=== PATIENT | male | born 1955 | race American Indian/Alaskan Native ===

== ENCOUNTER 2017-03-13 17:22 | Inpatient (IN) | payer SELFPAY ==
[2017-03-13] MEDS ORDERED: Sodium Chloride 0.9% 2,000 ML IV STA (17:58)
--- NOTE | 2017-03-13 18:13 | ED PDOC ---
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 He additionally states that he has been having bloody stool for the past couple of weeks, and admits to alcohol use. Past Medical History Reviewed: Historical Data, Nursing Documentation, Vital Signs Vital Signs: Last Vital Signs Temp 98 F 03/13/17 17:24 Pulse 66 03/13/17 18:20 Resp 16 03/13/17 18:20 BP 155/77 H 03/13/17 18:20 Pulse Ox 89 L 03/13/17 18:22 - Medical History PMH: No Chronic Diseases - Family History Family History: States: Unknown Family Hx - Social History Alcohol: < 2 Drinks/Day - Home Medications Home Medications: Ambulatory Orders Medication Instructions Recorded No Known Home Med 03/13/17 - Allergies Allergies/Adverse Reactions: Allergies Allergy/AdvReac Type Severity Reaction Status Date / Time No Known Allergies Allergy Verified 03/13/17 17:24 Review of Systems Constitutional: Positive for: Other (near syncope, felt very hot) Cardiovascular: Negative for: Chest Pain Gastrointestinal: Positive for: Vomiting, Hematochezia. Negative for: Abdominal Pain Physical Exam - Reviewed Nursing Documentation Reviewed: Yes Vital Signs Reviewed: Yes - Physical Exam Appears: Positive for: Non-toxic, No Acute Distress Head Exam: Positive for: ATRAUMATIC, NORMOCEPHALIC Skin: Positive for: Normal Color, Warm Eye Exam: Positive for: Other (mild conjunctival pallor). Negative for: Normal appearance Gastrointestinal/Abdominal: Positive for: Normal Exam, Soft. Negative for: Tenderness Neurologic/Psych: Positive for: Alert, Oriented. Negative for: Motor/Sensory Deficits - Laboratory Results Result Diagrams: 03/13/17 18:20 03/13/17 18:20 - ECG O2 Sat by Pulse Oximetry: 89 (RA) Pulse Ox Interpretation: Normal - Progress ED Course And Treament: PULSE OX 98% RA ZOFRAN 4 MG IV X1 DOSE PEPCID 20 MG IV X 1 DOSE NS 1 LITER WIDE OPEN REGLAN 10 MG IV X 1 DOSE Medical Decision Making Medical Decision Making: Impression: Near Syncopal Episode Plan: * Type and Screen * CBC * CMP * PTT * PT * Alcohol Serum * Magnesium * EKG * Chest X-Ray * NaCl 2000 mLs at 1000 mLs/hr * Zofran Inj 4 mg IV * Protonix Inj 40 mg IV * Reevaluation EKG showed sinus bradycardia at 56 bpm, no ectopy, no acute changes. Scribe Attestation: Documented by Jacquelin Cárdenas, acting as a scribe for Debra Cuevas PA-C. Provider Scribe Attestation: All medical record entries made by the Scribe were at my direction and personally dictated by me. I have reviewed the chart and agree that the record accurately reflects my personal performance of the history, physical exam, medical decision making, and the department course for this patient. I have also personally directed, reviewed, and agree with the discharge instructions and disposition. Disposition - Clinical Impression Clinical Impression: Near syncope - Patient ED Disposition Is Patient to be Admitted: Transfer of Care - Disposition Disposition: Transfer of Care Disposition Time: 20:08 Condition: FAIR Forms: [employer] (Italian) Patient Signed Over To: Araceli Webb Handoff Comments: PENDING HEAD CT/RE-EVAL/ADMISSION
[2017-03-13 18:35] LABS: BASO # 0.1 K/uL (0.0-0.2); BASO % 0.5 % (0.0-2.0); EOS # 0.1 K/uL (0.0-0.7); HEMATOCRIT 41.6 % (35.0-51.0); LYMPH # 2.7 K/uL (1.0-4.3); LYMPH % 23.7 % (20.0-40.0); MEAN CELL VOLUME 81.7 fl (80.0-94.0); MEAN CORPUSCULAR HEMOGLOBIN 26.2 pg (27.0-31.0); MEAN PLATELET VOLUME 8.5 fl (7.2-11.7); MONO # 0.7 K/uL (0.0-0.8); MONO % 5.9 % (0.0-10.0); NEUT # 7.9 K/uL (1.8-7.0); NEUT % 68.9 % (50.0-75.0); RED CELL DISTRIBUTION WIDTH 15.7 % (11.5-14.5); WHITE BLOOD COUNT 11.5 K/uL (4.8-10.8)
[2017-03-13 18:45] LABS: PARTIAL THROMBOPLASTIN TIME 26.8 Seconds (25.6-37.1)
[2017-03-13 18:46] LABS: ALB/GLOB RATIO 1.1 (1.0-2.1); ALCOHOL SERUM < 10 mg/dl (0-10); ALKALINE PHOSPHATASE 94 U/L (38-126); ALT/SGPT 22 U/L (21-72); AST/SGOT 24 U/L (17-59); BILIRUBIN,TOTAL 0.9 mg/dl (0.2-1.3); BLOOD UREA NITROGEN 16 mg/dl (9-20); CALCIUM 9.9 mg/dL (8.4-10.2); CARBON DIOXIDE 23 mmol/L (22-30); CHLORIDE 107 mmol/L (98-107); GFR AFRICAN-AMERICAN > 60; GLUCOSE,RANDOM 137 mg/dL (75-110); MAGNESIUM 2.2 MG/DL (1.6-2.3); POTASSIUM 3.7 MMOL/L (3.6-5.0); SODIUM 143 mmol/l (132-148); TOTAL PROTEIN 8.8 G/DL (6.3-8.2)
--- NOTE | 2017-03-13 20:40 | ED PDOC ---
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 He additionally states that he has been having bloody stool for the past couple of weeks, and admits to alcohol use. 03/13/17 20:[address]: IMPRESSION: 1. Near complete opacification of bilateral maxillary and left frontal sinuses. Moderate mucosal thickening in the bilateral ethmoid sinuses. Clinical correlation for sinus disease. 2. No evidence of acute intracranial brain pathology. Labs resulted and reviewed with Pt who demonstrated full understanding. Pt reports still feeling intermittent episode of dizziness while in ED. Case discussed with ED MD, who agreed with admission at this time. Pt does not have PMD, hospitalist Dr Magallon, contacted and case discussed. Arrangements made for admission Disposition - Clinical Impression Clinical Impression: Near syncope - POA Present On Arrival: None - Disposition Disposition: Admitted as In-Patient Disposition Time: 22:37 Condition: FAIR Forms: [employer] ([place]ian)
[2017-03-13] MEDS ORDERED: Sodium Chloride 0.9% 1,000 ML IV SCH (23:00)
--- NOTE | 2017-03-13 23:57 | CP.PCM.HP ---
History of Present Illness - History of Present Illness History of Present Illness: CC: Pre-syncope, bradycardia HPI: This is a 62 y/o male with no known chronic medical conditions who comes in with c/o pre-syncopal symptoms today. 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 He states that he started to feel hot, persistently LH, and like he was going to pass out. He then had several episodes of vomiting (nb/nb). He continued to have LHness until he came to ER, but it has improved now. Denies any CP, SOB. Denies f/c/d. States he has never had symptoms like this before. He has never had a syncopal episode in the past. He states nothing specifically made symptoms better or worse. He has not had any illnesses otherwise recently. Of note, patient notes he has had some heavy EtOH in the past, but has cut down , now only weekends. He states that he has had bloody stool occasionally in a couple of weeks, but guaiac here is negative. ROS: 14 systems reviewed, negative other than HPI MHx: None SHx: None Allergies: NKDA Medications: None Family Hx: CVA in family Social Hx: Lives alone, no tobacco, EtOH on weekends Surrogate: Simon Lee, son Present on Admission - Present on Admission Any Indicators Present on Admission: No Past Patient History - Past Social History Alcohol: < 2 Drinks/Day - PSYCHIATRIC Hx Substance Use: No - SURGICAL HISTORY Hx Surgeries: Yes Other/Comment: Left hip surgery - ANESTHESIA Hx Anesthesia: Yes Hx Anesthesia Reactions: No Hx Malignant Hyperthermia: No Meds Allergies/Adverse Reactions: Allergies Allergy/AdvReac Type Severity Reaction Status Date / Time No Known Allergies Allergy Verified 03/13/17 17:24 Physical Exam - Constitutional Appears: No Acute Distress - Head Exam Head Exam: ATRAUMATIC, NORMOCEPHALIC - Eye Exam Eye Exam: EOMI, PERRL - ENT Exam ENT Exam: Mucous Membranes Moist - Respiratory Exam Respiratory Exam: Clear to Auscultation Bilateral, NORMAL BREATHING PATTERN - Cardiovascular Exam Cardiovascular Exam: Bradycardia, REGULAR RHYTHM, +S1, +S2 - GI/Abdominal Exam GI & Abdominal Exam: Normal Bowel Sounds, Soft - Extremities Exam Extremities exam: Positive for: full ROM, normal inspection - Neurological Exam Neurological exam: Alert, CN II-XII Intact, Oriented x3 - Psychiatric Exam Psychiatric exam: Normal Affect, Normal Mood - Skin Skin Exam: Dry, Warm Results - Vital Signs Recent Vital Signs: Last Vital Signs Temp 98.2 F 03/13/17 19:33 Pulse 72 03/13/17 23:45 Resp 17 03/13/17 23:45 BP 151/79 H 03/13/17 23:45 Pulse Ox 98 03/13/17 23:45 - Labs Result Diagrams: 03/13/17 18:20 03/13/17 18:20 - EKG Data EKG Interpreted by: Myself EKG shows normal: Sinus rhythm Rate: Bradycardia - EKG Data EKG comments: Nonspecific ST changes - Imaging and Cardiology Chest x-ray Status: Image reviewed by me (No significant findings) CT scan - head Status: Image reviewed by me (no acute findings) Assessment & Plan (1) Near syncope Assessment and Plan: 62 y/o male with bradycardia and near syncope earlier today. -Obs tele -serial troponins -check TSH -repeat EKG in AM -check echo -check carotid dopplers to eval for obstruction -cardiology consult if needed -SCDs for DVT ppx Status: Acute (2) DVT prophylaxis Status: Acute
[2017-03-14 06:36] LABS: HEMATOCRIT 39.7 % (35.0-51.0); MEAN CELL VOLUME 82.3 fl (80.0-94.0); MEAN CORPUSCULAR HEMOGLOBIN 26.3 pg (27.0-31.0); MEAN CORPUSCULAR HGB CONC 31.9 g/dL (33.0-37.0); RED CELL DISTRIBUTION WIDTH 15.9 % (11.5-14.5); WHITE BLOOD COUNT 6.4 K/uL (4.8-10.8)
[2017-03-14 07:02] LABS: BLOOD UREA NITROGEN 12 mg/dl (9-20); CALCIUM 9.1 mg/dL (8.4-10.2); CARBON DIOXIDE 22 mmol/L (22-30); CHLORIDE 109 mmol/L (98-107); GFR AFRICAN-AMERICAN > 60; GLUCOSE,RANDOM 92 mg/dL (75-110); POTASSIUM 4.3 MMOL/L (3.6-5.0); SODIUM 142 mmol/l (132-148)
[2017-03-14 09:00] LABS: THYROID STIMULATING HORMONE 0.49 mIU/ML (0.46-4.68)
--- NOTE | 2017-03-14 09:36 | CP.PCM.CON ---
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 He additionally states that he has been having bloody stool for the past couple of weeks, and admits to alcohol use. Pt admits to not drinking fluids during the time he was working Monitor : NSR EKG: normal Troponin: neg x 3 Past Patient History - Past Social History Alcohol: < 2 Drinks/Day - CARDIAC Hx Cardiac Disorders: No - PULMONARY Hx Respiratory Disorders: No - NEUROLOGICAL Hx Neurological Disorder: No - HEENT Hx HEENT Problems: No - RENAL Hx Chronic Kidney Disease: No - ENDOCRINE/METABOLIC Hx Endocrine Disorders: No - HEMATOLOGICAL/ONCOLOGICAL Hx Blood Disorders: No - INTEGUMENTARY Hx Dermatological Problems: No - MUSCULOSKELETAL/RHEUMATOLOGICAL Hx Musculoskeletal Disorders: No - GENITOURINARY/GYNECOLOGICAL Hx Genitourinary Disorders: No - PSYCHIATRIC Hx Psychophysiologic Disorder: No - SURGICAL HISTORY Hx Surgeries: Yes Other/Comment: Left hip surgery - ANESTHESIA Hx Anesthesia: Yes Hx Anesthesia Reactions: No Hx Malignant Hyperthermia: No Meds Allergies/Adverse Reactions: Allergies Allergy/AdvReac Type Severity Reaction Status Date / Time No Known Allergies Allergy Verified 03/13/17 17:24 - Medications Medications: Current Medications Ondansetron HCl (Zofran Inj) 4 mg IVP Q4 PRN PRN Reason: Nausea/Vomiting Last Admin: 03/14/17 05:07 Dose: 4 mg Physical Exam - Constitutional Appears: Well - Head Exam Head Exam: NORMAL INSPECTION - Eye Exam Eye Exam: Normal appearance - ENT Exam ENT Exam: Normal Exam - Neck Exam Neck exam: Positive for: Normal Inspection - Respiratory Exam Respiratory Exam: NORMAL BREATHING PATTERN - Cardiovascular Exam Cardiovascular Exam: REGULAR RHYTHM Results - Vital Signs Recent Vital Signs: Last Vital Signs Temp 97.6 F 03/14/17 09:13 Pulse 56 L 03/14/17 09:13 Resp 20 03/14/17 09:13 BP 128/78 03/14/17 09:13 Pulse Ox 99 03/14/17 09:13 - Labs Result Diagrams: 03/14/17 06:20 03/14/17 06:20 Labs: Laboratory Results - last 24 hr 03/14/17 03/14/17 03/14/17 00:41 06:20 06:20 WBC 6.4 RBC 4.82 Hgb 12.7 Hct 39.7 MCV 82.3 MCH 26.3 L MCHC 31.9 L RDW 15.9 H Plt Count 199 Sodium 142 Potassium 4.3 Chloride 109 H Carbon Dioxide 22 Anion Gap 15 BUN 12 Creatinine 1.1 Est GFR ( Amer) > 60 Est GFR (Non-Af Amer) > 60 Random Glucose 92 Calcium 9.1 Troponin I < 0.0120 TSH 3rd Generation 03/14/17 07:00 WBC RBC Hgb Hct MCV MCH MCHC RDW Plt Count Sodium Potassium Chloride Carbon Dioxide Anion Gap BUN Creatinine Est GFR ( Amer) Est GFR (Non-Af Amer) Random Glucose Calcium Troponin I < 0.0120 TSH 3rd Generation 0.49 Assessment & Plan (1) Near syncope Assessment and Plan: All cardiac w/u is normal no evidence that this is cardiac in origin most likely dehydration Status: Acute
--- NOTE | 2017-03-14 09:45 | RAD ---
HISTORY: routine COMPARISON: No prior. FINDINGS: LUNGS: No active pulmonary disease. PLEURA: No significant pleural effusion identified, no pneumothorax apparent. CARDIOVASCULAR: Normal. OSSEOUS STRUCTURES: No significant abnormalities. VISUALIZED UPPER ABDOMEN: Normal. OTHER FINDINGS: None. IMPRESSION: No active disease.
[2017-03-14 09:50] LABS: CHOLESTEROL 159 mg/dL (0-199)
[2017-03-14] MEDS ORDERED: Thiamine 100 mg/ml Inj IM ONE (09:58)
--- NOTE | 2017-03-14 09:59 | CP.PCM.PN ---
Subjective - Date & Time of Evaluation Date of Evaluation: 03/14/17 Time of Evaluation: 09:00 - Subjective Subjective: No fever Pt was vomiting when I cam into his room Dizziness better no Headache Denies CP no SOB no abd pain no diarrhea, occ blood in stool only when he is constipated -denies any bloody stools lately denies any recent ETOH- no ETOH x 2 wks used to drink every weekend Complains of left hand tingling sensation x 2 days Objective - Vital Signs/Intake and Output Vital Signs (last 24 hours): Temp Pulse Resp BP Pulse Ox 98.2 F 54 L 18 158/89 H 100 03/14/17 09:40 03/14/17 09:40 03/14/17 09:40 03/14/17 09:40 03/14/17 09:40 Intake and Output: 03/14/17 03/14/17 06:59 18:59 Intake Total 730 Output Total 580 Balance 150 - Medications Medications: Current Medications Folic Acid (Folic Acid) 1 mg PO DAILY [facility] Ondansetron HCl (Zofran Inj) 4 mg IVP Q4 PRN PRN Reason: Nausea/Vomiting Last Admin: 03/14/17 09:30 Dose: 4 mg Pantoprazole Sodium (Protonix Ec Tab) 40 mg PO DAILY [facility] Thiamine HCl (Vitamin B1 Inj) 100 mg IM ONCE ONE Stop: 03/14/17 09:59 Thiamine HCl (Vitamin B1 Tab) 100 mg PO DAILY [facility] - Labs Labs: 03/14/17 06:20 03/14/17 06:20 PT 12.2 Seconds (9.8-13.1) 03/13/17 18:20 INR 1.2 (0.9-1.2) 03/13/17 18:20 APTT 26.8 Seconds (25.6-37.1) 03/13/17 18:20 - Constitutional Appears: No Acute Distress - Head Exam Head Exam: NORMAL INSPECTION, NORMOCEPHALIC - Eye Exam Eye Exam: EOMI, Normal appearance, PERRL Pupil Exam: NORMAL ACCOMODATION - ENT Exam ENT Exam: Mucous Membranes Moist, Normal External Ear Exam - Neck Exam Neck Exam: Full ROM. absent: Meningismus - Respiratory Exam Respiratory Exam: NORMAL BREATHING PATTERN. absent: Respiratory Distress - Cardiovascular Exam Cardiovascular Exam: Bradycardia, REGULAR RHYTHM, +S1, +S2 - GI/Abdominal Exam GI & Abdominal Exam: Soft, Normal Bowel Sounds. absent: Tenderness - Extremities Exam Extremities Exam: Full ROM, Normal Capillary Refill. absent: Calf Tenderness, Pedal Edema - Back Exam Back Exam: Full ROM. absent: CVA tenderness (L), CVA tenderness (R) - Neurological Exam Neurological Exam: Alert, Awake, CN II-XII Intact, Oriented x3 Neuro motor strength exam: Left Upper Extremity: 5, Right Upper Extremity: 5, Left Lower Extremity: 5, Right Lower Extremity: 5 - Psychiatric Exam Psychiatric exam: Normal Affect, Normal Mood - Skin Skin Exam: Dry, Normal Color, Warm Assessment and Plan (1) Near syncope Status: Acute (2) Vomiting Status: Acute (3) Numbness and tingling in left hand Status: Acute (4) Carotid stenosis, right Status: Acute - Assessment and Plan (Free Text) Assessment: 62 y/o gent, no known PMH, was brought in by EMS bec of dizziness, near syncope and vomiting. (1) Near syncope Status: Acute Pt came in feeling very faint, had vomiting, diaphoresis and also complained of left hand numbness Denies CP, no SOB, no abd pain, no diarrhea Pt was in a hot room - grilling food CT of heads: neg Trop x 3 neg Carotid Sono : right ICA stenosis 60-79% ECHO: mild inferolateral hypokinesia , normal LV fxn Cardio consult (2) Vomiting unclear etiology Status: Acute pt denies diarrhea nor abd pain admits to occ blood in stool when he is constipated rec outpt GI appt for Colonoscopy Stool guaiac - negative x 1 (3) Numbness and tingling in left hand Status: Acute CT of head : neg ? neuropathy check B12 , Folate TSH normal Neurology consult (4) Carotid stenosis, right Status: Acute Carotid Sono : 60-79% stenosis right Vascular Surgery consult 5. Sinus Bradycardia Cardio consult Tele monitoring DVT proph - Lovenox
--- NOTE | 2017-03-14 10:04 | CT ---
PROCEDURE: CT HEAD WITHOUT CONTRAST. HISTORY: near syncope/dizziness/vomiting COMPARISON: None available. TECHNIQUE: Axial computed tomography images were obtained through the head/brain without intravenous contrast. Radiation dose: Total exam DLP = 820.7 mGy-cm. This CT exam was performed using one or more of the following dose reduction techniques: Automated exposure control, adjustment of the mA and/or kV according to patient size, and/or use of iterative reconstruction technique. FINDINGS: HEMORRHAGE: No acute parenchymal, subarachnoid or extra-axial hemorrhage. BRAIN: No evidence of large acute infarct. . If symptoms persist or early on hyperacute infarct suspected clinically recommend followup MRI. Mild to moderate central volume loss VENTRICLES: No obstructive hydrocephalus CALVARIUM: No acute calvarial fractures. PARANASAL SINUSES: Near-complete opacification right maxillary antrum and complete opacification left maxillary antrum. . There is also on moderate mucosal thickening in the ethmoid air complex left greater than right extending superiorly into the left chamber frontal sinus which completely occluded. MASTOID AIR CELLS: Unremarkable as visualized. No inflammatory changes. OTHER FINDINGS: None. IMPRESSION: No evidence of acute intracranial hemorrhage. Mild to moderate central volume loss.
--- NOTE | 2017-03-14 11:47 | CARD ---
APPROVED REPORT EXAM: Two-dimensional and M-mode echocardiogram with Doppler and color Doppler. Other Information Quality : GoodRhythm : Bradycardia INDICATION Abnormal EKG/Arrhythmia Syncope 2D DIMENSIONS IVSd1.39 (0.7-1.1cm)LVDd5.16 (3.9-5.9cm) LVOT Diameter2.59 (1.8-2.4cm)PWd1.32 (0.7-1.1cm) IVSs2.02 (0.8-1.2cm)LVDs2.94 (2.5-4.0cm) FS (%) 42.9 %PWs1.70 (0.8-1.2cm) LVEF (%)55.0 (>50%) M-Mode DIMENSIONS Left Atrium (MM)4.00 (2.5-4.0cm)IVSd1.68 (0.7-1.1cm) Aortic Root3.71 (2.2-3.7cm)LVDd5.41 (4.0-5.6cm) Aortic Cusp Exc.2.18 (1.5-2.0cm)PWd1.47 (0.7-1.1cm) IVSs1.97 cmFS (%) 44 % LVDs3.03 (2.0-3.8cm)PWs2.15 cm Mitral Valve MV E Ukcfeyjj67.9cm/sMV DECEL [id number] A Xpcvghdk71.3cm/s MV YRO68jgC/A ratio0.9MVA (PHT)3.05cm2 TDI Lateral E' Peak V10.92cm/sMedial E' Peak V7.58cm/sE/Lateral E'5.4 E/Medial E'7.8 Pulmonary Valve PV Peak Paabhltb04.3cm/s LEFT VENTRICLE The left ventricle is normal size. There is moderate concentric left ventricular hypertrophy. The left ventricular ejection fraction is within the normal range. Mild infero-lateral hypokinesis Transmitral Doppler flow pattern is Grade I-abnormal relaxation pattern. No left ventricle thrombus noted on this study. RIGHT VENTRICLE The right ventricle is normal size. There is normal right ventricular wall thickness. The right ventricular systolic function is normal. ATRIA The left atrium size is normal. The right atrium size is normal. AORTIC VALVE The aortic valve is thickened but opens well. No aortic regurgitation is present. There is no aortic valvular stenosis. MITRAL VALVE The mitral valve is normal in structure and function. There is no mitral valve stenosis. There is no mitral valve regurgitation noted. TRICUSPID VALVE The tricuspid valve is normal in structure and function. There is no tricuspid valve regurgitation noted. PULMONIC VALVE The pulmonary valve is normal in structure and function. There is no pulmonic valvular regurgitation. GREAT VESSELS The aortic root is mildly enlarged. The IVC was not visualized. PERICARDIAL EFFUSION The pericardium appears normal. <Conclusion> The left ventricle is normal size. There is moderate concentric left ventricular hypertrophy. The left ventricular ejection fraction is within the normal range. Mild infero-lateral hypokinesis Transmitral Doppler flow pattern is Grade I-abnormal relaxation pattern.
--- NOTE | 2017-03-14 12:51 | CARD ---
APPROVED REPORT EKG Measurement Heart [id number] <Conclusion> Sinus bradycardia Nonspecific ST abnormality Abnormal ECG
--- NOTE | 2017-03-14 12:52 | US ---
PROCEDURE: Duplex ultrasound of the carotid and vertebral arteries. . HISTORY: Presyncope. COMPARISON: No prior study available for comparison TECHNIQUE: Grayscale and duplex Doppler evaluation of the cervical carotid and vertebral arteries were performed. The common carotid, carotid bifurcations and cervical ICA and proximal ECA were evaluated. The vertebral arteries were evaluated for gross patency and direction. . FINDINGS: RIGHT CAROTID ARTERIES: Minimal intimal thickening seen within the right common carotid artery. Partially calcified atherosclerotic plaque present within both carotid bifurcations right carotid bifurcation extending into the proximal internal and external carotid arteries. Maximal right ICA velocity = 136.2 cm/ S. Maximal right CCA velocity = 118.9 cm/S ICA/CCA Ratio: 1.3 LEFT CAROTID ARTERIES: Minimal intimal thickening left common carotid artery. Partially calcified plaque present within the left carotid bifurcation extending into the proximal internal carotid artery. Maximal left ICA velocity = 91.4 cm/S Maximal left CCA velocity = 120.5 cm/S ICA/CCA Ratio: 0.8 VERTEBRAL ARTERIES: Right Vertebral Artery: Patent. Antegrade flow. Left Vertebral Artery: Patent. Antegrade flow. OTHER FINDINGS: None. IMPRESSION: There are calcified plaque changes seen within both carotid bifurcations and proximal internal carotid arteries. Increased velocity in the right internal carotid artery with estimated stenosis approximately 60-79 % based on velocity measurements. Estimated percent diameter stenosis left internal carotid artery between 1 and 39 %
[2017-03-14 15:58] VITALS: RESP 20
--- NOTE | 2017-03-14 19:21 | CP.PCM.CON ---
History of Present Illness - History of Present Illness History of Present Illness: Surgery CC: vomiting and dizziness HPI: 62 y/o male with no sign pmhx presented to hospital complaining of vomiting and dizziness after heat exhaustion. 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 AT break for lunch, he moved from sitting to standing position which was followed by dizziness, as if the room was spinning. He states he broke out in a cool sweat and then had episodes of nonbloody nonbilious vomiting. He did report food intake earlier that day. He denies having similar symptoms in the past. He denies HTN or DM. He states he takes no medications at home that might have caused the symptoms. He does report minimal fluid intake at work. Currently, he states the dizziness has improved however does notice it mildly when moving from a laying to standing position. He also reports tingling to the left upper extremity. Denies difficulty with range of motion or sensory. PMH: "gout" PSH: left femur surgery, right hand tendon repair Social: denies ETOH, tobacco, or drug use Review of Systems - Review of Systems All systems: reviewed and no additional remarkable complaints except Review of Systems: unless stated in HPI Past Patient History - Past Social History Smoking Status: Former Smoker - CARDIAC Hx Cardiac Disorders: No - PULMONARY Hx Respiratory Disorders: No - NEUROLOGICAL Hx Neurological Disorder: No - HEENT Hx HEENT Problems: No - RENAL Hx Chronic Kidney Disease: No - ENDOCRINE/METABOLIC Hx Endocrine Disorders: No - HEMATOLOGICAL/ONCOLOGICAL Hx Blood Disorders: No - INTEGUMENTARY Hx Dermatological Problems: No - MUSCULOSKELETAL/RHEUMATOLOGICAL Hx Musculoskeletal Disorders: No Hx Falls: No - GASTROINTESTINAL Hx Gastrointestinal Disorders: No - GENITOURINARY/GYNECOLOGICAL Hx Genitourinary Disorders: No - PSYCHIATRIC Hx Psychophysiologic Disorder: No Hx Substance Use: No - SURGICAL HISTORY Hx Surgeries: Yes Other/Comment: Left hip surgery. right hand (4th finger) laceration fix - ANESTHESIA Hx Anesthesia: Yes Hx Anesthesia Reactions: No Hx Malignant Hyperthermia: No Meds Allergies/Adverse Reactions: Allergies Allergy/AdvReac Type Severity Reaction Status Date / Time No Known Allergies Allergy Verified 03/13/17 17:24 - Medications Medications: Current Medications Enoxaparin Sodium (Lovenox) 40 mg SC DAILY [facility] PRN Reason: Protocol Folic Acid (Folic Acid) 1 mg PO DAILY [facility] Ondansetron HCl (Zofran Inj) 4 mg IVP Q4 PRN PRN Reason: Nausea/Vomiting Last Admin: 03/14/17 09:30 Dose: 4 mg Pantoprazole Sodium (Protonix Ec Tab) 40 mg PO DAILY [facility] Thiamine HCl (Vitamin B1 Tab) 100 mg PO DAILY [facility] Valsartan (Diovan) 80 mg PO DAILY [facility] Physical Exam - Constitutional Appears: Non-toxic, No Acute Distress - Head Exam Head Exam: ATRAUMATIC, NORMOCEPHALIC - Eye Exam Eye Exam: EOMI, Normal appearance - ENT Exam ENT Exam: Mucous Membranes Moist - Respiratory Exam Respiratory Exam: Clear to Auscultation Bilateral, NORMAL BREATHING PATTERN. absent: Respiratory Distress - Cardiovascular Exam Cardiovascular Exam: REGULAR RHYTHM. absent: Tachycardia - GI/Abdominal Exam GI & Abdominal Exam: absent: Distended, Tenderness - Extremities Exam Extremities exam: Positive for: normal inspection. Negative for: calf tenderness - Neurological Exam Neurological exam: Alert, Oriented x3 - Psychiatric Exam Psychiatric exam: Normal Affect, Normal Mood - Skin Skin Exam: Dry, Normal Color, Warm Results - Vital Signs Recent Vital Signs: Last Vital Signs Temp 99.0 F 03/14/17 19:03 Pulse 53 L 03/14/17 19:03 Resp 20 03/14/17 19:03 BP 160/85 H 03/14/17 19:03 Pulse Ox 99 03/14/17 19:03 - Labs Result Diagrams: 03/14/17 06:20 03/14/17 06:20 Labs: Laboratory Results - last 24 hr 03/14/17 03/14/17 03/14/17 00:41 06:20 06:20 WBC 6.4 RBC 4.82 Hgb 12.7 Hct 39.7 MCV 82.3 MCH 26.3 L MCHC 31.9 L RDW 15.9 H Plt Count 199 Sodium 142 Potassium 4.3 Chloride 109 H Carbon Dioxide 22 Anion Gap 15 BUN 12 Creatinine 1.1 Est GFR ( Amer) > 60 Est GFR (Non-Af Amer) > 60 Random Glucose 92 Calcium 9.1 Troponin I < 0.0120 Triglycerides Cholesterol LDL Cholesterol Direct HDL Cholesterol TSH 3rd Generation Urine Opiates Screen Urine Methadone Screen Ur Barbiturates Screen Ur Phencyclidine Scrn Ur Amphetamines Screen U Benzodiazepines Scrn U Oth Cocaine Metabols U Cannabinoids Screen 03/14/17 03/14/17 07:00 15:00 WBC RBC Hgb Hct MCV MCH MCHC RDW Plt Count Sodium Potassium Chloride Carbon Dioxide Anion Gap BUN Creatinine Est GFR ( Amer) Est GFR (Non-Af Amer) Random Glucose Calcium Troponin I < 0.0120 Triglycerides 63 Cholesterol 159 LDL Cholesterol Direct 101 HDL Cholesterol 33 TSH 3rd Generation 0.49 Urine Opiates Screen Negative Urine Methadone Screen Negative Ur Barbiturates Screen Negative Ur Phencyclidine Scrn Negative Ur Amphetamines Screen Negative U Benzodiazepines Scrn Negative U Oth Cocaine Metabols Positive H U Cannabinoids Screen Positive H Assessment & Plan - Assessment and Plan (Free Text) Assessment: 62 y/o male w/ vomiting and dizziness after heat exhaustion found to have carotid stenosis on left Plan: -CTA -gentle fluid hydration -am labs -pending CTA results determine surgical intervention -further recs per Dr. Tabatha Montiel PGY3
--- NOTE | 2017-03-14 19:50 | CP.PCM.CON ---
History of Present Illness - History of Present Illness History of Present Illness: Mr. Tilley is a 62-year-old man who states that he does not have any medical problems, but yesterday experience the sudden onset of dizziness and feeling unstable with near syncope. He feels better today and does not feel dizzy. He was able to stand up and ambulate to the bathroom without difficulty. He admits to heavy drinking the day of and night before. His urine toxicology was positive for cocaine and THC. He complained of feeling some numbness and tingling of the left arm. He denied nausea, vomiting, headache, visual changes , or weakness. Review of Systems - Review of Systems All systems: reviewed and no additional remarkable complaints except Past Patient History - Past Social History Smoking Status: Former Smoker - CARDIAC Hx Cardiac Disorders: No - PULMONARY Hx Respiratory Disorders: No - NEUROLOGICAL Hx Neurological Disorder: No - HEENT Hx HEENT Problems: No - RENAL Hx Chronic Kidney Disease: No - ENDOCRINE/METABOLIC Hx Endocrine Disorders: No - HEMATOLOGICAL/ONCOLOGICAL Hx Blood Disorders: No - INTEGUMENTARY Hx Dermatological Problems: No - MUSCULOSKELETAL/RHEUMATOLOGICAL Hx Musculoskeletal Disorders: No Hx Falls: No - GASTROINTESTINAL Hx Gastrointestinal Disorders: No - GENITOURINARY/GYNECOLOGICAL Hx Genitourinary Disorders: No - PSYCHIATRIC Hx Psychophysiologic Disorder: No Hx Substance Use: No - SURGICAL HISTORY Hx Surgeries: Yes Other/Comment: Left hip surgery. right hand (4th finger) laceration fix - ANESTHESIA Hx Anesthesia: Yes Hx Anesthesia Reactions: No Hx Malignant Hyperthermia: No Meds Allergies/Adverse Reactions: Allergies Allergy/AdvReac Type Severity Reaction Status Date / Time No Known Allergies Allergy Verified 03/13/17 17:24 - Medications Medications: Current Medications Enoxaparin Sodium (Lovenox) 40 mg SC DAILY [facility] PRN Reason: Protocol Folic Acid (Folic Acid) 1 mg PO DAILY [facility] Ondansetron HCl (Zofran Inj) 4 mg IVP Q4 PRN PRN Reason: Nausea/Vomiting Last Admin: 03/14/17 09:30 Dose: 4 mg Pantoprazole Sodium (Protonix Ec Tab) 40 mg PO DAILY [facility] Thiamine HCl (Vitamin B1 Tab) 100 mg PO DAILY [facility] Valsartan (Diovan) 80 mg PO DAILY [facility] Physical Exam - Constitutional Appears: Well - Head Exam Head Exam: ATRAUMATIC, NORMAL INSPECTION, NORMOCEPHALIC - Eye Exam Eye Exam: EOMI, Normal appearance, PERRL - ENT Exam ENT Exam: Mucous Membranes Moist, Normal Exam - Neck Exam Neck exam: Positive for: Normal Inspection - Cardiovascular Exam Cardiovascular Exam: REGULAR RHYTHM, +S1, +S2 - GI/Abdominal Exam GI & Abdominal Exam: Normal Bowel Sounds, Soft. absent: Tenderness - Rectal Exam Rectal Exam: Deferred - Extremities Exam Extremities exam: Positive for: normal inspection - Back Exam Back exam: NORMAL INSPECTION - Neurological Exam Neurological exam: Alert, CN II-XII Intact, Normal Gait, Oriented x3, Reflexes Normal - Expanded Neurological Exam Expanded Patient oriented to: person, place, time Cranial nerves: EOM's Intact: Normal, Facial Palsey w/o Forehead Movement: Normal, Nystagmus: Abnormal Left Cerebellar Function: Finger to Nose: Normal Upper motor neuron: Babinski Sign: Normal Sensory exam: Lower Extremity Light Touch: Normal, Lower Extremity Pin Prick: Normal, Upper Extremity Light Touch: Normal, Upper Extremity Pin Prick: Normal Neuro motor strength exam: Left Upper Extremity: 5, Right Upper Extremity: 5, Left Lower Extremity: 5, Right Lower Extremity: 5 DTR: Achilles Tendon Left: 2+, Achilles Tendon Right: 2+, Bicep Left: 2+, Bicep Right: 2+, Brachioradialis Left: 2+, Brachioradialis Right: 2+, Patellar Left: 2 +, Patellar Right: 2+, Tricep Left: 2+, Tricep Right: 2+ Results - Vital Signs Recent Vital Signs: Last Vital Signs Temp 99.0 F 03/14/17 19:03 Pulse 53 L 03/14/17 19:03 Resp 20 03/14/17 19:03 BP 160/85 H 03/14/17 19:03 Pulse Ox 99 03/14/17 19:03 - Labs Result Diagrams: 03/14/17 06:20 03/14/17 06:20 Labs: Laboratory Results - last 24 hr 03/14/17 03/14/17 03/14/17 00:41 06:20 06:20 WBC 6.4 RBC 4.82 Hgb 12.7 Hct 39.7 MCV 82.3 MCH 26.3 L MCHC 31.9 L RDW 15.9 H Plt Count 199 Sodium 142 Potassium 4.3 Chloride 109 H Carbon Dioxide 22 Anion Gap 15 BUN 12 Creatinine 1.1 Est GFR ( Amer) > 60 Est GFR (Non-Af Amer) > 60 Random Glucose 92 Calcium 9.1 Troponin I < 0.0120 Triglycerides Cholesterol LDL Cholesterol Direct HDL Cholesterol TSH 3rd Generation Urine Opiates Screen Urine Methadone Screen Ur Barbiturates Screen Ur Phencyclidine Scrn Ur Amphetamines Screen U Benzodiazepines Scrn U Oth Cocaine Metabols U Cannabinoids Screen 03/14/17 03/14/17 07:00 15:00 WBC RBC Hgb Hct MCV MCH MCHC RDW Plt Count Sodium Potassium Chloride Carbon Dioxide Anion Gap BUN Creatinine Est GFR ( Amer) Est GFR (Non-Af Amer) Random Glucose Calcium Troponin I < 0.0120 Triglycerides 63 Cholesterol 159 LDL Cholesterol Direct 101 HDL Cholesterol 33 TSH 3rd Generation 0.49 Urine Opiates Screen Negative Urine Methadone Screen Negative Ur Barbiturates Screen Negative Ur Phencyclidine Scrn Negative Ur Amphetamines Screen Negative U Benzodiazepines Scrn Negative U Oth Cocaine Metabols Positive H U Cannabinoids Screen Positive H - Imaging and Cardiology CT scan - head Status: Image reviewed by me, Report reviewed by me (No acute findings) Assessment & Plan (1) Near syncope Assessment and Plan: Likely related to intoxication with multiple illicit substances and neuro- cardiogenic effects. Continue fluid resuscitation and cardiac work-up. Status: Acute Priority: Medium (2) Numbness and tingling in left hand Assessment and Plan: The patient has some other subtle neurologic findings including nystagmus. I will order MRI of the brain to rule out an acute infarct. Will start aspirin 81 mg daily for cerebrovascular protection. PT/OT eval and treatment. Telemetry. DVT Px. Status: Acute
[2017-03-14] MEDS ORDERED: Iodixanol 320 MG/ML 100 ML BOTTLE IV ONE (20:01)
[2017-03-14] MEDS ORDERED: Sodium Chloride 0.9% 50 ML IV ONE (20:02)
[2017-03-15 08:03] VITALS: O2SAT 99
[2017-03-15] MEDS ORDERED: Enoxaparin 40 mg Syringe SC SCH (09:00)
[2017-03-15] MEDS ORDERED: Pantoprazole 40 mg EC Tab PO SCH (09:00)
--- NOTE | 2017-03-15 09:07 | CP.PCM.PN ---
Subjective - Date & Time of Evaluation Date of Evaluation: 03/15/17 Time of Evaluation: 09:04 - Subjective Subjective: Surgery: Dr. Mays Patient states he feels much better today. Denies n/v. occasional dizziness but overall significantly improved. Objective - Vital Signs/Intake and Output Vital Signs (last 24 hours): Temp Pulse Resp BP Pulse Ox 98.5 F 50 L 20 134/79 99 03/15/17 08:01 03/15/17 08:01 03/15/17 08:01 03/15/17 05:11 03/15/17 08:01 - Medications Medications: Current Medications Aspirin (Ecotrin) 81 mg PO DAILY [facility] Last Admin: 03/15/17 08:36 Dose: 81 mg Enoxaparin Sodium (Lovenox) 40 mg SC DAILY [facility] PRN Reason: Protocol Last Admin: 03/15/17 08:36 Dose: 40 mg Folic Acid (Folic Acid) 1 mg PO DAILY [facility] Last Admin: 03/15/17 08:35 Dose: 1 mg Ondansetron HCl (Zofran Inj) 4 mg IVP Q4 PRN PRN Reason: Nausea/Vomiting Last Admin: 03/14/17 21:20 Dose: 4 mg Pantoprazole Sodium (Protonix Ec Tab) 40 mg PO DAILY [facility] Last Admin: 03/15/17 08:35 Dose: 40 mg Thiamine HCl (Vitamin B1 Tab) 100 mg PO DAILY [facility] Last Admin: 03/15/17 08:35 Dose: 100 mg Valsartan (Diovan) 80 mg PO DAILY [facility] Last Admin: 03/15/17 08:35 Dose: 80 mg - Labs Labs: 03/14/17 06:20 03/14/17 06:20 PT 12.2 Seconds (9.8-13.1) 03/13/17 18:20 INR 1.2 (0.9-1.2) 03/13/17 18:20 APTT 26.8 Seconds (25.6-37.1) 03/13/17 18:20 - Constitutional Appears: Non-toxic, No Acute Distress - Head Exam Head Exam: ATRAUMATIC, NORMOCEPHALIC - Eye Exam Eye Exam: EOMI, Normal appearance - ENT Exam ENT Exam: Mucous Membranes Moist - Respiratory Exam Respiratory Exam: NORMAL BREATHING PATTERN. absent: Respiratory Distress - Cardiovascular Exam Cardiovascular Exam: REGULAR RHYTHM. absent: Tachycardia - Extremities Exam Extremities Exam: Full ROM, Normal Inspection. absent: Calf Tenderness - Neurological Exam Neurological Exam: Alert, Awake, Oriented x3. absent: Motor Sensory Deficit Neuro motor strength exam: Left Upper Extremity: 5, Right Upper Extremity: 5 - Skin Skin Exam: Dry, Normal Color, Warm Assessment and Plan - Assessment and Plan (Free Text) Assessment: 62 y/o male w/ dizziness and vomiting, most likely related to heat exhaustion Plan: -u/s showed right CA stenosis at 60-80% however CTA showed no significant stenosis in either carotid -no acute surgical intervention at this time -medical management per primary -further recs per Dr. Tabatha Montiel PGY3
--- NOTE | 2017-03-15 11:29 | MRI ---
PROCEDURE: MRI BRAIN WITHOUT CONTRAST HISTORY: rule out stroke COMPARISON: Comparison made with CT scan brain 03/13/2017 TECHNIQUE: Multiplanar, multisequence MR images of the brain were obtained without intravenous contrast enhancement. FINDINGS: HEMORRHAGE: No acute parenchymal, subarachnoid or extra-axial hemorrhage. No evidence of hemosiderin deposition identified on gradient echo weighted sequence. DWI: No evidence of an acute or early subacute infarction seen on diffusion imaging. . BRAIN PARENCHYMA: Few focal small focal areas there are several small focal areas of increased T2 signal seen scattered about deep and subcortical white matter both cerebral hemispheres consistent with chronic sequela of small vessel disease. Moderate generalized volume loss. VENTRICLES: No obstructive hydrocephalus. CRANIUM: There are no calvarial abnormalities. ORBITS: Orbits and contents unremarkable. PARANASAL SINUSES/MASTOIDS: Complete opacification of both maxillary sinuses with subtotal opacification of the ethmoid air complex extending superiorly into the left aspect of the frontal sinus. Mild mucosal thickening seen in the right aspect of the frontal sinus. VASCULAR SYSTEM: Visualized major vascular flow voids at skull base are patent. OTHER FINDINGS: None. IMPRESSION: No evidence of acute intracranial hemorrhage or infarction. There are several small lacunar type infarcts scattered about the deep and subcortical white matter both cerebral hemispheres. Moderate atrophy. Significant mucoperiosteal inflammatory changes within the aforementioned paranasal sinuses as above.
[2017-03-15 12:14] VITALS: BP 160/83; TEMP 98.1
[2017-03-15 14:14] VITALS: PULSE 50
--- NOTE | 2017-03-15 14:15 | CP.PCM.DIS ---
Provider - Provider Date of Admission: 03/13/17 22:31 Attending physician: Mayte Magallon MD Consults: Neuro : Dr Viveros Cardio : Dr Pierce [facility] Surgery : Dr Mays Time Spent in preparation of Discharge (in minutes): 45 Diagnosis - Discharge Diagnosis (1) Near syncope Status: Acute Priority: Medium (2) Vomiting Status: Acute (3) Numbness and tingling in left hand Status: Acute (4) Carotid stenosis, right Status: Ruled-out (5) Drug abuse Status: Acute (6) DVT prophylaxis Status: Acute (7) HTN (hypertension) Status: Acute Hospital Course - Lab Results Lab Results: Most Recent Lab Values WBC 6.4 K/uL (4.8-10.8) 03/14/17 06:20 RBC 4.82 Mil/uL (4.40-5.90) 03/14/17 06:20 Hgb 12.7 g/dL (12.0-18.0) 03/14/17 06:20 Hct 39.7 % (35.0-51.0) 03/14/17 06:20 MCV 82.3 fl (80.0-94.0) 03/14/17 06:20 MCH 26.3 pg (27.0-31.0) L 03/14/17 06:20 MCHC 31.9 g/dL (33.0-37.0) L 03/14/17 06:20 RDW 15.9 % (11.5-14.5) H 03/14/17 06:20 Plt Count 199 K/uL (130-400) 03/14/17 06:20 MPV 8.5 fl (7.2-11.7) 03/13/17 18:20 Neut % (Auto) 68.9 % (50.0-75.0) 03/13/17 18:20 Lymph % (Auto) 23.7 % (20.0-40.0) 03/13/17 18:20 [place] % (Auto) 5.9 % (0.0-10.0) 03/13/17 18:20 Eos % (Auto) 1.0 % (0.0-4.0) 03/13/17 18:20 Baso % (Auto) 0.5 % (0.0-2.0) 03/13/17 18:20 Neut # 7.9 K/uL (1.8-7.0) H 03/13/17 18:20 Lymph # 2.7 K/uL (1.0-4.3) 03/13/17 18:20 [place] # 0.7 K/uL (0.0-0.8) 03/13/17 18:20 Eos # 0.1 K/uL (0.0-0.7) 03/13/17 18:20 Baso # 0.1 K/uL (0.0-0.2) 03/13/17 18:20 PT 12.2 Seconds (9.8-13.1) 03/13/17 18:20 INR 1.2 (0.9-1.2) 03/13/17 18:20 APTT 26.8 Seconds (25.6-37.1) 03/13/17 18:20 Sodium 142 mmol/l (132-148) 03/14/17 06:20 Potassium 4.3 MMOL/L (3.6-5.0) 03/14/17 06:20 Chloride 109 mmol/L (98-107) H 03/14/17 06:20 Carbon Dioxide 22 mmol/L (22-30) 03/14/17 06:20 Anion Gap 15 (10-20) 03/14/17 06:20 BUN 12 mg/dl (9-20) 03/14/17 06:20 Creatinine 1.1 mg/dL (0.8-1.5) 03/14/17 06:20 Est GFR ( Amer) > 60 03/14/17 06:20 Est GFR (Non-Af Amer) > 60 03/14/17 06:20 Random Glucose 92 mg/dL (75-110) 03/14/17 06:20 Calcium 9.1 mg/dL (8.4-10.2) 03/14/17 06:20 Magnesium 2.2 MG/DL (1.6-2.3) 03/13/17 18:20 Total Bilirubin 0.9 mg/dl (0.2-1.3) 03/13/17 18:20 AST 24 U/L (17-59) 03/13/17 18:20 ALT 22 U/L (21-72) 03/13/17 18:20 Alkaline Phosphatase 94 U/L (38-126) 03/13/17 18:20 Troponin I < 0.0120 ng/mL (0.00-0.120) 03/14/17 07:00 Total Protein 8.8 G/DL (6.3-8.2) H 03/13/17 18:20 Albumin 4.6 g/dL (3.5-5.0) 03/13/17 18:20 Globulin 4.1 gm/dL (2.2-3.9) H 03/13/17 18:20 Albumin/Globulin Ratio 1.1 (1.0-2.1) 03/13/17 18:20 Triglycerides 63 mg/DL (0-149) 03/14/17 07:00 Cholesterol 159 mg/dL (0-199) 03/14/17 07:00 LDL Cholesterol Direct 101 mg/dL (0-129) 03/14/17 07:00 HDL Cholesterol 33 MG/DL (30-70) 03/14/17 07:00 Vitamin B12 316 pg/mL (239-931) 03/15/17 09:40 TSH 3rd Generation 0.49 mIU/ML (0.46-4.68) 03/14/17 07:00 Urine Opiates Screen Negative (NEGATIVE) 03/14/17 15:00 Urine Methadone Screen Negative (NEGATIVE) 03/14/17 15:00 Ur Barbiturates Screen Negative (NEGATIVE) 03/14/17 15:00 Ur Phencyclidine Scrn Negative (NEGATIVE) 03/14/17 15:00 Ur Amphetamines Screen Negative (NEGATIVE) 03/14/17 15:00 U Benzodiazepines Scrn Negative (NEGATIVE) 03/14/17 15:00 U Oth Cocaine Metabols Positive (NEGATIVE) H 03/14/17 15:00 U Cannabinoids Screen Positive (NEGATIVE) H 03/14/17 15:00 Alcohol, Quantitative < 10 mg/dl (0-10) 03/13/17 18:20 Blood Type O NEGATIVE 03/13/17 18:20 Antibody Screen Negative 03/13/17 18:20 BBK History Checked No verified bt 03/13/17 18:20 - Hospital Course Hospital Course: 62 y/o gent, no known PMH, was brought in by EMS bec of dizziness, near syncope and vomiting. Cardio, Neuro consulted . Drug screen + for Cocaine and Cannabis also admitted to alcohol intake the night before event. Symptoms resolved except for some slight lightheadedness. (1) Near syncope prob sec to heat exhaustion in combination with illicit drug use and alcohol Status: Acute Pt came in feeling very faint, had vomiting, diaphoresis and also complained of left hand numbness Denies CP, no SOB, no abd pain, no diarrhea Pt was in a hot room - grilling food CT of heads: neg, MRI of brain ; neg acute Trop x 3 neg Carotid Sono : right ICA stenosis 60-79%, CTA of head and neck : negative stenosis ECHO: mild inferolateral hypokinesia , normal LV fxn Cardio consulted- cleared pt Urine Drug Screen : + for Cocaine and Cannabis PT consulted -sl gait instability Pt wants to go home , , states he has 24 hr supervision by family and theyll come to pick him up advised to ambulate only with assistance Lightheadedness may still be effect of multi drug use - Cocaine , marijuana and ETOH Advised not to go back to work and ff up at the next wk (2) Vomiting prob from cannabis use ( hyperemesis cannabis) Status: Acute Vomiting likely due to marijuana use pt denies diarrhea nor abd pain admits to occ blood in stool when he is constipated rec outpt GI appt for Colonoscopy Stool guaiac - negative x 1 (3) Numbness and tingling in left hand Status: Acute CT of head : neg ? neuropathy vs adverse rxn from drug abuse B12 normal TSH normal Neurology consulted MRI of Brain negative acute infarct /bleed symptom has resolved (4) Carotid stenosis, right, ruled out Status: Acute Carotid Sono : 60-79% stenosis right Vascular Surgery consulted- rec CTA Head and Neck CTA ruled out Carotid stenosis 5. Sinus Bradycardia Cardio consulted Tele monitoring- no other abn rhythm likely low HR in the 50's is pt's baseline 6. HTN uncontrolled start Norvasc 5 mg daily ff up clinic DVT proph - Lovenox Discharge Exam - Head Exam Head Exam: ATRAUMATIC, NORMAL INSPECTION, NORMOCEPHALIC - Eye Exam Eye Exam: EOMI, Normal appearance, PERRL Pupil Exam: NORMAL ACCOMODATION - ENT Exam ENT Exam: Mucous Membranes Moist, Normal External Ear Exam - Neck Exam Neck exam: Full Rom - Respiratory Exam Respiratory Exam: NORMAL BREATHING PATTERN. absent: Respiratory Distress - Cardiovascular Exam Cardiovascular Exam: REGULAR RHYTHM, +S1, +S2 - GI/Abdominal Exam GI & Abdominal Exam: Normal Bowel Sounds, Soft. absent: Tenderness - Extremities Exam Extremities exam: full ROM, normal capillary refill, pedal pulses present - Back Exam Back exam: FULL ROM. absent: CVA tenderness (L), CVA tenderness (R) - Neurological Exam Neurological exam: Alert, CN II-XII Intact, Oriented x3, Reflexes Normal - Psychiatric Exam Psychiatric exam: Normal Affect, Normal Mood - Skin Skin Exam: Dry, Intact, Normal Color Discharge Plan - Discharge Medications Prescriptions: amLODIPine [Norvasc] 5 mg PO DAILY #30 tab Aspirin [Ecotrin] 81 mg PO DAILY #30 Thiamine [Vitamin B1 Tab] 100 mg PO DAILY #30 tab - Follow Up Plan Condition: GOOD Disposition: HOME/ ROUTINE Instructions: Syncope (DC) Additional Instructions: appt FP clinic in 1 wk Needs 24 hour supervision by family for now until better Referrals: [facility] [Outside]
--- NOTE | 2017-03-15 17:56 | CT ---
PROCEDURE: CT Angiography of the neck neck and brain dated 03/14/2017 HISTORY: Left carotid stenosis COMPARISON: None available however correlation made with carotid Doppler 03/14/2017. . TECHNIQUE: Contiguous helical/transaxial images of the neck were obtained from the level of the calvarial vertex to the superior mediastinum in the arteriographic phase of enhancement. Coronal and sagittal reformats or also generated. IV contrast dose: 80 cc Visipaque 320 Radiation Dose - DLP: 2305.27 mGy-cm This CT exam was performed using one or more of the following dose reduction techniques: Automated exposure control, adjustment of the mA and/or kV according to patient size, and/or use of iterative reconstruction technique. FINDINGS: Findings: There is mild aneurysmal dilatation of the ascending thoracic aorta measuring approximately 4.0 cm in transverse dimension. Descending thoracic aorta measures approximately 2.48 cm. Pulmonary trunk measures approximately 2.86 cm. The origins of the great vessels are. Patent without significant atherosclerotic disease. The right and left common carotid arteries demonstrate the are also widely patent without occlusion nor significant stenosis. Some very minor calcified plaque changes seen along the posterolateral and medial border of the all left carotid bifurcation/origin left internal carotid artery. However no evidence to suggest hemodynamically significant stenosis on the left side. Localized larger plaque seen along left posteromedial margin of the left the right carotid bifurcation. . Changes appear to result narrowing at approximately 40 %. . The at internal carotid arteries are slightly asymmetric left-sided which is slightly larger in caliber/more dominant than the right. The petrous, cavernous and supraclinoid segments also widely patent without significant stenosis. . . There is asymmetry of the A1 segments left-sided which is larger in caliber/more dominant than the right. The at distal anterior cerebral arteries are also patent with left-sided remains more dominant. The middle cerebral arteries are patent as well with is relative symmetric appearance of the distal on branches of the middle cerebral arteries. Both vertebral arteries are visible throughout left-sided which is only minimally more dominant than the right. Basilar artery is patent as are both posterior cerebral arteries. No evidence of large aneurysm nor vascular malformation. Impression: There is estimated approximately 40 percent diameter stenosis right at the carotid bifurcation/proximal right internal carotid artery as described. No significant left-sided stenosis.
== END 2017-03-15 15:05 | disposition home or self-care (01) | DRG 923 ==
LOC: H.ER 17:22 → H.ERHOLD 22:31 → H.TEL 03-14 09:02
PROVIDERS: ADMIT Internal Medicine; ATTEND Internal Medicine
DX: T67.1XXA Heat syncope, initial encounter (principal); F14.10 Cocaine abuse, uncomplicated; F12.90 Cannabis use, unspecified, uncomplicated; E86.0 Dehydration; T67.5XXA Heat exhaustion, unspecified, initial encounter; I10 Essential (primary) hypertension; I65.23 Occlusion and stenosis of bilateral carotid arteries; H55.00 Unspecified nystagmus; X58.XXXA Exposure to other specified factors, initial encounter; Z82.3 Family history of stroke; Z87.891 Personal history of nicotine dependence; Y92.9 Unspecified place or not applicable